=== PATIENT | female | born 1985 | race Caucasian/White ===

== ENCOUNTER 2023-04-25 11:05 | Outpatient (CLI) | payer OTHER ==
[2023-04-25 11:24] LABS: BASOPHILS % (AUTO) 0.4 %; EOSINOPHILS # (AUTO) 0.1 10^3/uL (0.0-0.7); EOSINOPHILS % (AUTO) 1.5 %; HCT - HEMATOCRIT 38.8 % (37.0-47.0); HGB - HEMOGLOBIN 12.9 g/dL (12.0-16.0); LYMPHOCYTES # (AUTO) 2.7 10^3/uL (1.5-3.5); LYMPHOCYTES % (AUTO) 33.2 %; MEAN CORPUSCULAR HEMOGLOBIN 29.3 pg (27.0-31.0); MEAN CORPUSCULAR HGB CONC 33.2 g/dL (32.0-36.0); MONOCYTES # (AUTO) 0.6 10^3/uL (0.0-1.0); NEUTROPHILS # (AUTO) 4.6 10^3/uL (1.5-6.6); NEUTROPHILS % (AUTO) 56.5 %; PLT - PLATELET COUNT 386 10^3/uL (130-450); RED BLOOD COUNT 4.41 10^6/uL (4.20-5.40); RED CELL DISTRIBUTION WIDTH 12.3 % (12.0-15.0)
[2023-04-25 11:40] LABS: ALBUMIN 4.2 g/dL (3.2-5.5); ALBUMIN/GLOBULIN RATIO 1.4 (1.0-2.2); BILIRUBIN,TOTAL 0.4 mg/dL (0.2-1.0); CREATININE 0.7 mg/dL (0.6-1.3); POTASSIUM 3.9 mmol/L (3.5-4.5); TOTAL PROTEIN 7.1 g/dL (6.4-8.9)
[2023-04-25 11:52] LABS: ESTIMATED AVERAGE GLUCOSE 117 mg/dL (70-100); HEMOGLOBIN A1c% 5.7 % (4.27-6.07)
[2023-04-25 11:57] LABS: THYROID STIMULATING HORMONE 2.18 uIU/mL (0.34-5.60)
== END 2023-04-25 11:06 | disposition home or self-care (01) ==
LOC: LAB 11:05
PROVIDERS: ATTEND Nurse Practitioner Obstetrics & Gynecology
DX: Z31.41 Encounter for fertility testing (principal); E66.9 Obesity, unspecified
CPT/HCPCS: 36415; 80053; 83036; 84144; 84439; 84443; 85025

== ENCOUNTER 2023-04-28 11:00 | Outpatient (CLI) | payer OTHER | END 2023-04-28 11:01 | disposition home or self-care (01) | LOC: LAB 11:00 | PROVIDERS: ATTEND Nurse Practitioner Obstetrics & Gynecology | DX: Z31.41 Encounter for fertility testing (principal) | CPT/HCPCS: 36415; 84144 ==

== ENCOUNTER 2023-06-13 08:00 | Outpatient (CLI) | payer SELFPAY | END 2023-06-13 23:59 | disposition home or self-care (01) | LOC: LAB 08:00 | PROVIDERS: ATTEND Nurse Practitioner Obstetrics & Gynecology | DX: O36.80X0 Pregnancy with inconclusive fetal viability, not applicable or unspecified (principal) | CPT/HCPCS: 36415; 84702 ==

== ENCOUNTER 2023-07-04 13:10 | Outpatient (CLI) | payer SELFPAY | END 2023-07-04 13:11 | disposition home or self-care (01) | LOC: LAB 13:10 | PROVIDERS: ATTEND Nurse Practitioner Obstetrics & Gynecology | DX: Z13.79 Encounter for other screening for genetic and chromosomal anomalies (principal) | CPT/HCPCS: 36415; 84144 ==

== ENCOUNTER 2023-08-09 15:13 | Outpatient (CLI) | payer OTHER | END 2023-08-09 15:14 | disposition home or self-care (01) | LOC: LAB.R 15:13 | PROVIDERS: ATTEND Nurse Practitioner Obstetrics & Gynecology | DX: Z13.79 Encounter for other screening for genetic and chromosomal anomalies (principal) | CPT/HCPCS: 84144 ==

== ENCOUNTER 2023-08-12 07:15 | Outpatient (CLI) | payer OTHER | END 2023-08-12 07:16 | disposition home or self-care (01) | LOC: LAB 07:15 | PROVIDERS: ATTEND Nurse Practitioner Obstetrics & Gynecology | DX: Z13.79 Encounter for other screening for genetic and chromosomal anomalies (principal) | CPT/HCPCS: 36415; 84144 ==

== ENCOUNTER 2024-05-29 03:46 | Inpatient (IN) ==
--- OUTSIDE RECORDS SUMMARY | 2024-05-29 03:54 | EXTERNAL MEDICAL SUMMARY RPT | Continuity of Care Document ---
Author Organization [facility] Address [address] [place] [id number] Phone Problems date description facility 2024-03-16 08:55 Supervision of other high risk pregnancies, second trimester [facility] 2024-03-16 08:56 Supervision of other high risk pregnancies, second trimester [facility] 2024-03-17 00:01 Supervision of other high risk pregnancies, second trimester [facility] 2024-03-19 06:37 Supervision of other high risk pregnancies, second trimester [facility] 2024-03-26 13:22 Supervision of other high risk pregnancies, second trimester [facility] 2024-03-26 13:26 Supervision of other high risk pregnancies, second trimester [facility] 2024-04-27 10:41 Supervision of other high risk pregnancies, second trimester [facility] 2024-04-27 11:02 Supervision of other high risk pregnancies, second trimester [facility] 2024-05-01 13:13 Supervision of other high risk pregnancies, second trimester [facility] 2024-05-01 13:21 Supervision of other high risk pregnancies, second trimester [facility] 2024-05-01 14:10 Supervision of other high risk pregnancies, second trimester [facility] 2024-05-01 18:29 Supervision of other high risk pregnancies, second trimester [facility] 2024-05-02 00:01 Supervision of other high risk pregnancies, second trimester [facility] 2024-05-02 10:08 Supervision of other high risk pregnancies, second trimester [facility] 2024-05-03 04:39 Supervision of other high risk pregnancies, second trimester [facility] 2024-05-03 13:00 Supervision of other high risk pregnancies, second trimester [facility] 2024-05-03 13:04 Supervision of other high risk pregnancies, second trimester [facility] 2024-05-03 15:30 Supervision of other high risk pregnancies, second trimester [facility] 2024-05-03 15:36 Supervision of other high risk pregnancies, second trimester [facility] 2024-05-08 13:40 Other specified disorders of mu [facility] 2024-05-08 13:40 Supervision of other high risk pregnancies, second trimester [facility] 2024-05-08 13:40 Unspecified urinary incontinenc e [facility] 2024-05-08 13:40 10 weeks gestation of [facility] 2024-05-08 13:41 Other specified disorders of mu [facility] 2024-05-08 13:41 Supervision of other high risk pregnancies, second trimester [facility] 2024-05-08 13:41 Unspecified urinary incontinenc e [facility] 2024-05-08 13:41 10 weeks gestation of [facility] 2024-05-08 13:47 Supervision of other high risk pregnancies, second trimester [facility] 2024-05-08 13:56 Supervision of other high risk pregnancies, second trimester [facility] 2024-05-08 14:01 Other specified disorders of [facility] 2024-05-08 14:01 Supervision of other high risk pregnancies, second trimester [facility] 2024-05-08 14:01 Unspecified urinary incontinenc e [facility] 2024-05-08 14:01 10 weeks gestation of [facility] 2024-05-10 11:24 Supervision of other high risk pregnancies, second trimester [facility] 2024-05-10 11:36 Other specified disorders of mu [facility] 2024-05-10 11:36 Supervision of other high risk pregnancies, second trimester [facility] 2024-05-10 11:36 Unspecified urinary incontinenc e [facility] 2024-05-10 11:36 10 weeks gestation of [facility] 2024-05-10 11:37 Supervision of other high risk pregnancies, second trimester [facility] 2024-05-22 16:42 Supervision of other high risk pregnancies, second trimester [facility] 2024-05-22 18:31 Supervision of other high risk pregnancies, second trimester [facility] 2024-05-23 00:01 Supervision of other high risk pregnancies, second trimester [facility] Results/Labs test date facility value unit notes Result panel 1 SPECIFIC GRAVITY,URINE 2024-05-29 02[facility].030 (missing) (missing) KETONES,URINE (UA) 2024-05-29 02[facility] >=80 mg/dl (missing) WBC,URINE 2024-05-29 02:20 [facility] 0-3 /hpf (missing) RBC,URINE 2024-05-29 02:20 [facility] 0-5 /hpf (missing) PROTEIN/CREATININE RATIO,URINE 2024-05-29 02:20 [facility] 0.2 (missing) (missing) UROBILINOGEN,URINE 2024-05-29 02:20 [facility] 1 (NORMAL) e.u./dl (missing) CREATININE,URINE 2024-05-29 02: [facility] 110.2 mg/dl As of August 2022 testing method has changed, this may include reference ranges. TOTAL PROTEIN,URINE TIMED 2024-05-29 02: [facility] 17 mg/dl As of August 2022 testing method has changed, this may include reference ranges. PH,URINE 2024-05-29 02:20 [facility] 6.0 ph (missing) CLARITY,URINE 2024-05-29 02:20 [facility] CLEAR (missing) (missing) SQUAMOUS EPITHELIAL CELL,UR 2024-05-29 02:20 [facility] FEW Squamous (missing) (missing) LEUKOCYTE ESTERASE, URINE 2024-05-29 02:20 [facility] NEGATIVE (missing) (missing) NITRITE,URINE 2024-05-29 02:20 [facility] NEGATIVE (missing) (missing) OCCULT BLOOD,URINE 2024-05-29 02:20 [facility] NEGATIVE (missing) (missing) BILIRUBIN,URINE 2024-05-29 02:20 [facility] NEGATIVE (missing) Bilirubin can be influenced by color interference. Please correlate positive results with clinical presentation GLUCOSE, URINE (UA) 2024-05-29 02:20 [facility] NEGATIVE mg/dl (missing) PROTEIN,URINE 2024-05-29 02:20 [facility] NEGATIVE mg/dl (missing) UR CULTURE IF IND 2024-05-29 02:20 [facility] NOT INDICATED (missing) (missing) BACTERIA,URINE 2024-05-29 02[facility] (missing) COLOR,URINE 2024-05-29 02[facility] YELLOW (missing) URINE CLEAN CATCH Result panel 2 NUCLEATED RED BLOOD CELLS AUTO 2024-05-29 02:29 [facility] 0.0 /100wbc (missing) BASOPHILS # (AUTO) 2024-05-29 02:29 [facility] 0.0 10 3/ul (missing) NRBC ABSOLUTE COUNT (AUTO) 2024-05-29 02[facility] 0.00 x10 3/ul (missing) EOSINOPHILS # (AUTO) 2024-05-29 [facility] 0.1 10 3/ul (missing) BILIRUBIN,TOTAL 2024-05-29 02: [facility] 0.4 mg /dl As of August 2022 testing method has changed, this may include reference ranges. CREATININE 2024-05-29 02: [facility] 0.5 mg/dl As of August 2022 testing method has changed, this may include reference ranges. MONOCYTES # (AUTO) 2024-05-29 02:29 [facility] 0.8 10 3/ul (missing) ALBUMIN/GLOBULIN RATIO 2024-05-29 02:29 [facility] 1.1 (missing) (missing) LYMPHOCYTES # (AUTO) 2024-05-29 02:29 [facility] 1.8 10 3/ul (missing) AST ASPARTATE AMINOTRANSFERASE 2024-05-29 02: [facility] 10 iu/l As of August 2022 testing method has changed, this may include reference ranges. ANION GAP 2024-05-29 02:29 [facility] 10.0 (missing ) (missing) CHLORIDE 2024-05-29 02:29 [facility] 105 mmol/l As of August 2022 testing method has changed, this may include reference ranges. HGB - HEMOGLOBIN 2024-05-29 02: [facility] 11.7 g /dl (missing) WHITE BLOOD COUNT 2024-05-29 02: [facility] 12.5 x10 3/ul (missing) RED CELL DISTRIBUTION WIDTH 2024-05-29 02: [facility] 12.8 % (missing) GLUCOSE 2024-05-29 02: [facility] 126 mg/dl As of August 2022 testing method has changed, this may include reference ranges. SODIUM 2024-05-29 02: [facility] 137 mmol/l As of August 2022 testing method has changed, this may include reference ranges. GFR - MDRD 2024-05-29 02:29 [facility] 140 (in g) Social History date description facility
[2024-05-29] MEDS: METOCLOPRAMIDE 10 MG/2 ML VIAL IVP STA (04:14)
[2024-05-29] MEDS: MORPHINE 10 MG/ML VIAL IVP PRN ×2 (04:14→05:10)
[2024-05-29] MEDS: ACETAMINOPHEN 1,000 MG/100 ML 1,000 MG/100 ML BAG IV ONE (04:45)
[2024-05-29 05:13] LABS: BASOPHILS % (AUTO) 0.2 %; EOSINOPHILS % (AUTO) 0.2 %; HCT - HEMATOCRIT 35.3 % (37.0-47.0); HGB - HEMOGLOBIN 11.6 g/dL (12.0-16.0); LYMPHOCYTES # (AUTO) 1.5 10^3/uL (1.5-3.5); LYMPHOCYTES % (AUTO) 9.9 %; MEAN CORPUSCULAR HEMOGLOBIN 29.1 pg (27.0-31.0); MEAN CORPUSCULAR HGB CONC 32.9 g/dL (32.0-36.0); MEAN CORPUSCULAR VOLUME 88.5 fL (81.0-99.0); MEAN PLATELET VOLUME 10.2 fL (7.9-10.8); MONOCYTES # (AUTO) 0.8 10^3/uL (0.0-1.0); MONOCYTES % (AUTO) 5.3 %; NEUTROPHILS # (AUTO) 12.7 10^3/uL (1.5-6.6); NEUTROPHILS % (AUTO) 83.4 %; PLT - PLATELET COUNT 364 10^3/uL (130-450); RED BLOOD COUNT 3.99 10^6/uL (4.20-5.40); RED CELL DISTRIBUTION WIDTH 12.7 % (12.0-15.0); WHITE BLOOD COUNT 15.2 x10^3/uL (4.8-10.8)
--- NOTE | 2024-05-29 05:16 | ED Physician Documentation ---
History of Present Illness Stated complaint Stated Complaint: RUQ ABD PX Chief complaint Chief Complaint: Abd Pain Additonal information Additional information: 38-year-old female with past medical significant for 27 weeks , central hypertension presents to the emergency department with chief complaint of abdominal pain. She presents to the emergency department from labor and delivery. Acute onset epigastric and right upper quadrant abdominal pain began this evening. Did report that it happened after fatty meal. Was seen at labor delivery and cleared from perspective/elevated blood pressure. Currently reports severe left upper quadrant and epigastric pain. Denies previous abdominal surgeries, fever, chills, chest pain, shortness of breath. [place] Coma Scale Assess Eye opening: Spontaneous Verbal response: Oriented Motor response: Obeys Commands Total score: 15 Review of Systems Status of ROS: 10 or more systems reviewed and unremarkable except as noted in history and below Gastrointestinal Reports: Abdominal pain, Nausea and Vomiting Meds/Allgy Home Medications Ambulatory Orders Medication Instructions Recorded Confirmed vits no.28-ferrous 1 tab PO QDAY 01/10/24 05/22/24 fumarate 27 mg iron-folic acid 1 mg tablet metoclopramide HCl 5 mg tablet 5 mg PO Q6H PRN nausea and 02/09/24 05/22/24 vomiting #90 tabs aspirin 81 mg tablet,delayed 81 mg PO QDAY 03/16/24 05/22/24 release (Adult Aspirin Regimen) omeprazole 20 mg capsule,delayed 20 mg PO QDAY #90 caps 04/24/24 05/22/24 release sodium citrate-citric acid 500 15 ml PO .bid PRN #473 mL 04/24/24 05/22/24 mg-334 mg/5 mL oral solution sucralfate 1 gram tablet (Carafate) 1 g PO BID #90 tabs 04/24/24 05/22/24 nifedipine 30 mg tablet,extended 30 mg PO QDAY #90 tabs 05/01/24 05/22/24 release 24 hr (Procardia XL) Allergies Allergies Allergy/AdvReac Type Severity Reaction Status Date / Time No Known Drug Allergies Allergy Verified 05/29/24 03:57 PFSH Active Problems All Active Problems (Updated 03/16/24 @ 08:49 by Farhana Jaquez MA) Supervision of other high risk pregnancies, second trimester (Acute) Advanced maternal age (AMA) in (Acute) (Acute) Supervision of other high risk pregnancies, first trimester (Acute) Elevated blood pressure affecting in first trimester, antepartum (Acute) test positive (Acute) Anovulation (Acute) Surgical History Surgical History (Updated 01/10/24 @ 08:57 by Farhana Jaquez MA) Hx of LASIK H/O eye surgery right H/O cosmetic surgery H/O left knee surgery ACL repair Family History Family History (Updated 01/10/24 @ 09:10 by Farhana Jaquez MA) Father Alcohol abuse Mother Alcohol abuse Social History Social History (Updated 01/10/24 @ 08:57 by Farhana Jaquez MA) Smoking Status: Never smoker Do you vape?: No Living arrangement: At home Marital Status: Relationship: Do you feel safe in your home environment?: Yes Suffered physical, verbal, emotional, or financial abuse?: No ETOH Use: None Are you sexually active?: Yes 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 HENMT normocephalic, head/scalp atraumatic, hearing grossly normal bilaterally and external ears normal Eyes PERRL Neck/C-Spine visual inspection normal Lymph no lymphadenopathy noted Chest inspection of chest normal Respiratory breath sounds equal bilaterally, normal respiratory effort, clear to auscultation bilaterally, no wheezes and no use of accessory muscles Cardiovascular normal heart rate noted, regular rhythm noted, no gallop, no rub, no murmur, no JVD and no clicks Gastrointestinal abdomen normal to inspection, abdomen soft to palpation, nontender to palpation and nontender to percussion Genitourinary no CVA tenderness Back/Pelvis spine normal to inspection Extremities normal to inspection Neurology heating operators engineer II-XII intact, no movement abnormality noted, no focal motor deficit noted and no sensory deficits noted Psychiatry mental status grossly normal Skin skin color normal Results Vitals Vitals: Vital Signs - 24 hr 05/29/24 02:36 05/29/24 03:19 05/29/24 03:50 Temperature 36.6 C Temperature Source Oral Pulse Rate 92 Respiratory Rate 16 Blood Pressure 146/90 H O2 Saturation 98 O2 Source Room air Pain Intensity 7 8 Pain Intensity [Abdomen upper quadrant] 8 05/29/24 04:14 05/29/24 05:00 05/29/24 05:10 Temperature Temperature Source Pulse Rate Respiratory Rate Blood Pressure O2 Saturation O2 Source Pain Intensity 9 3 5 Pain Intensity [Abdomen upper quadrant] 05/29/24 05:45 05/29/24 06:00 05/29/24 06:36 Temperature Temperature Source Pulse Rate 83 Respiratory Rate 20 Blood Pressure 130/75 O2 Saturation 99 O2 Source Pain Intensity 1 5 Pain Intensity [Abdomen upper quadrant] Oxygen O2 Source Room air Labs Labs: Laboratory Tests 05/29/24 05:07 WBC 15.2 H RBC 3.99 L Hgb 11.6 L Hct 35.3 L MCV 88.5 MCH 29.1 MCHC 32.9 RDW 12.7 Plt Count 364 MPV 10.2 Neut # (Auto) 12.7 H Lymph # (Auto) 1.5 Harmon # (Auto) 0.8 Eos # (Auto) 0.0 Baso # (Auto) 0.0 Absolute Nucleated RBC 0.00 Nucleated RBC % 0.0 Sodium 135 Potassium 3.7 Chloride 104 Carbon Dioxide 21 Anion Gap 10.0 BUN 6 Creatinine 0.5 L Estimated GFR (MDRD) 140 Glucose 128 H Calcium 8.6 Total Bilirubin 0.4 AST 10 ALT 9 L Alkaline Phosphatase 92 Total Protein 6.9 Albumin 3.7 Globulin 3.2 Albumin/Globulin Ratio 1.2 Lipase 12 PD Medical Decision Making ED course Complexity details: reviewed results, re-evaluated patient, considered differential and d/w patient ED course: 38-year-old female who is approximately 27 weeks presents from L&D for evaluation for abdominal pain. She does have a past medical history significant for essential hypertension. Was evaluated in L&D for preeclampsia, cleared from perspective and referred to the emergency department for further evaluation and treatment. Significantly distressed on arrival to the emergency department. Given dose of Reglan, IV morphine with some relief. Additionally given dose Willian Mab. No appreciable epigastric or right upper quadrant tenderness abdominal exam otherwise benign. Repeat lab work demonstrates an uptrending white blood cell count but normal LFTs, alkaline phosphatase, lipase. At this time I have asked for both right upper quadrant as well as right renal ultrasonography to evaluate for biliary pathology and or nephrolithiasis which could be contributing to the patient's symptoms. Will be signing out to the oncoming physician, please see their documentation for further detail. Discharge Plan Discharge Prescriptions: No Action metoclopramide HCl 5 mg tablet 5 mg PO Q6H PRN (Reason: nausea and vomiting) Qty: 90 2RF Rx Instructions: May increase to 2 tablets every 6 hours if one tablet every 6 hours is ineffective. sodium citrate-citric acid 500-334 mg/5 mL solution 15 ml PO .bid PRNQty: 473 0RF sucralfate [Carafate] 1 gram tablet 1 g PO BID Qty: 90 4RF omeprazole 20 mg capsule,delayed release(DR/EC) 20 mg PO QDAY Qty: 90 4RF vit 28-iron fum-folic 27 mg iron- 1 mg tablet 1 tab PO QDAY aspirin [Adult Aspirin Regimen] 81 mg tablet,delayed release (DR/EC) 81 mg PO QDAY nifedipine [Procardia XL] 30 mg tablet extended release 24hr 30 mg PO QDAY Qty: 90 4RF Print Language: Welsh Stand Alone Forms: PCP List
[2024-05-29 05:36] LABS: ALBUMIN 3.7 g/dL (3.2-5.5); ALBUMIN/GLOBULIN RATIO 1.2 (1.0-2.2); BILIRUBIN,TOTAL 0.4 mg/dL (0.2-1.0); CALCIUM 8.6 mg/dL (8.5-10.3); CREATININE 0.5 mg/dL (0.6-1.3); POTASSIUM 3.7 mmol/L (3.5-4.5); TOTAL PROTEIN 6.9 g/dL (6.4-8.9)
[2024-05-29] MEDS: ONDANSETRON 4 MG/2 ML VIAL IVP STA (06:42)
[2024-05-29] MEDS ORDERED: MORPHINE 10 MG/ML VIAL ONE (07:52)
[2024-05-29 08:14] LABS: BILIRUBIN,URINE NEGATIVE (NEGATIVE); GLUCOSE, URINE (UA) NEGATIVE (NEGATIVE); KETONES,URINE (UA) >=80 mg/dL (NEGATIVE); LEUKOCYTE ESTERASE, URINE NEGATIVE (NEGATIVE); NITRITE,URINE NEGATIVE (NEGATIVE); OCCULT BLOOD,URINE NEGATIVE (NEGATIVE); PROTEIN,URINE NEGATIVE (NEGATIVE); UROBILINOGEN,URINE 1 (NORMAL) E.U./dL (NORMAL)
[2024-05-29 08:15] LABS: CLARITY,URINE CLEAR (CLEAR)
[2024-05-29] MEDS: FAMOTIDINE 20 MG TABLET PO STA (08:51)
[2024-05-29] MEDS: LIDOCAINE VISCOUS 2% 15 ML UDC MM STA (08:52)
[2024-05-29] MEDS: MAG HYDROX/AL HYDROX/SIMETH 30 ML UDC PO STA (08:52)
[2024-05-29] MEDS ORDERED: HYDROmorphone 1 MG/ML SYRINGE ONE (09:30)
[2024-05-29] MEDS: HYDROmorphone 1 MG/ML SYRINGE IVP STA (09:32)
[2024-05-29] MEDS: LACTATED RINGERS 1,000 ML IV STA (09:37)
--- NOTE | 2024-05-29 09:50 | CONSULTATION NOTE ---
PFSH Active Problems All Active Problems (Updated 05/29/24 @ 10:50 by Omkar Edgar MD) Intractable abdominal pain (Acute) (Acute) Right upper quadrant abdominal pain (Acute) Upper abdominal pain (Acute) Supervision of other high risk pregnancies, second trimester (Acute) Advanced maternal age (AMA) in (Acute) (Acute) Supervision of other high risk pregnancies, first trimester (Acute) Elevated blood pressure affecting in first trimester, antepartum (Acute) test positive (Acute) Anovulation (Acute) Surgical History Surgical History Hx of LASIK H/O eye surgery right H/O cosmetic surgery H/O left knee surgery ACL repair Family History Family History (Updated 01/10/24 @ 09:10 by Farhana Jaquez MA) Father Alcohol abuse Mother Alcohol abuse Social History Social History (Updated 01/10/24 @ 08:57 by Farhana Jaquez MA) Smoking Status: Never smoker Do you vape?: No Living arrangement: At home Marital Status: Relationship: Do you feel safe in your home environment?: Yes Suffered physical, verbal, emotional, or financial abuse?: No ETOH Use: None Are you sexually active?: Yes 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 Meds/Allgy Home Medications Ambulatory Orders Medication Instructions Recorded Confirmed vits no.28-ferrous 1 tab PO QDAY 01/10/24 05/29/24 fumarate 27 mg iron-folic acid 1 mg tablet metoclopramide HCl 5 mg tablet 5 mg PO Q6H PRN nausea and 02/09/24 05/29/24 vomiting #90 tabs aspirin 81 mg tablet,delayed 81 mg PO QDAY 03/16/24 05/29/24 release (Adult Aspirin Regimen) omeprazole 20 mg capsule,delayed 20 mg PO QDAY #90 caps 04/24/24 05/29/24 release sucralfate 1 gram tablet (Carafate) 1 g PO BID #90 tabs 04/24/24 05/29/24 nifedipine 30 mg tablet,extended 30 mg PO QDAY #90 tabs 05/01/24 05/29/24 release 24 hr (Procardia XL) sodium citrate-citric acid 500 15 ml PO .bid 05/29/24 05/29/24 mg-334 mg/5 mL oral solution Allergies Allergies Allergy/AdvReac Type Severity Reaction Status Date / Time No Known Drug Allergies Allergy Verified 05/29/24 03:57 Results Lab Results 05/29/24 05:07 05/29/24 05:07 Other Lab Results: Lab Results x24hrs 05/29/24 05/29/24 Range/Units 08:10 05:07 WBC 15.2 H (4.8-10.8) x10^3/uL RBC 3.99 L (4.20-5.40) 10^6/uL Hgb 11.6 L (12.0-16.0) g/dL Hct 35.3 L (37.0-47.0) % MCV 88.5 (81.0-99.0) fL MCH 29.1 (27.0-31.0) pg MCHC 32.9 (32.0-36.0) g/dL RDW 12.7 (12.0-15.0) % Plt Count 364 (130-450) 10^3/uL MPV 10.2 (7.9-10.8) fL Neut # (Auto) 12.7 H (1.5-6.6) 10^3/uL Lymph # (Auto) 1.5 (1.5-3.5) 10^3/uL [place] # (Auto) 0.8 (0.0-1.0) 10^3/uL Eos # (Auto) 0.0 (0.0-0.7) 10^3/uL Baso # (Auto) 0.0 (0.0-0.1) 10^3/uL Absolute Nucleated RBC 0.00 x10^3/uL Nucleated RBC % 0.0 /100WBC Sodium 135 (135-145) mmol/L Potassium 3.7 (3.5-4.5) mmol/L Chloride 104 (101-111) mmol/L Carbon Dioxide 21 (21-32) mmol/L Anion Gap 10.0 (6-13) BUN 6 (6-20) mg/dL Creatinine 0.5 L (0.6-1.3) mg/dL Estimated GFR (MDRD) 140 (>89) Glucose 128 H (74-104) mg/dL Calcium 8.6 (8.5-10.3) mg/dL Total Bilirubin 0.4 (0.2-1.0) mg/dL AST 10 (10-42) IU/L ALT 9 L (10-60) IU/L Alkaline Phosphatase 92 (42-121) IU/L Total Protein 6.9 (6.4-8.9) g/dL Albumin 3.7 (3.2-5.5) g/dL Globulin 3.2 (2.1-4.2) g/dL Albumin/Globulin Ratio 1.2 (1.0-2.2) Lipase 12 (11-82) U/L Urine Color YELLOW Urine Clarity CLEAR (CLEAR) Urine pH 7.0 (5.0-7.5) PH Ur Specific [place] 1.025 (1.002-1.030) Urine Protein NEGATIVE (NEGATIVE) mg/dL Urine Glucose (UA) NEGATIVE (NEGATIVE) mg/dL Urine Ketones >=80 H (NEGATIVE) mg/dL Urine Occult Blood NEGATIVE (NEGATIVE) Urine Nitrite NEGATIVE (NEGATIVE) Urine Bilirubin NEGATIVE (NEGATIVE) Urine Urobilinogen 1 (NORMAL) (NORMAL) E.U./dL Ur Leukocyte Esterase NEGATIVE (NEGATIVE) Ur Microscopic Review NOT INDICATED Urine Culture Comments NOT INDICATED Conclusion and Plan Consultation Note Consultation Note: General Surgery Consultation Note Assessment: 1) RUQ and epigastric colic, etiology unclear. There is no US evidence of gallbladder distension or dilation of the cystic duct or the CBD. The gallbladder wall thickness of 3.4 mm and the presence or pericholecystic fluid combined with a WBC of 15K is suggestive of acute cholecystitis. 2) High risk 3) PTSD/Anxiety 4) Class III Obesity Recommendation: 1) Serum lipase to R/O acute pancreatitis 2) IV Ceftriaxone/Flagyl, IV analgesics as indicated 3) Surgical intervention for acute cholecystitis should be within 48-72 hours of admission. Given her high risk , efforts should be made to arrange for transfer to a Tertiary Care Facility for the cholecystectomy because if premature emergency delivery becomes necessary, our facility does not have the support to manage the . <><><><><><><><><><> Reason for Consultation I am requested by Svetlana Ellington to provide consultation for: Cheryl Donnelly regarding RUQ pain Chief Complaint Abdominal pain HPI Cheryl is a 38 year old female who is 27 weeks and presents with the onset of RUQ and epigastric abdominal pain. She first developed indigestion after yesterday's evening meal. This was followed by multiple bouts of nausea and emesis such that she eliminated her entire dinner. This was followed by sharp, intermittent epigastric and RUQ pain severe enough that she was brought to the ED at 0200. The pain has been poorly controlled with IV morphine. She denies having similar discomfort either prior to her or during her although she has struggled with dyspepsia and GERD during her term and takes antacids and PPI medication to control her symptoms. She had several pain attacks during the interview and they appear to be more like colic than peritoneal irritation. Past Medical History Migraines Past Surgical History Lasik, ACL repair Family History - See above Social History - See above Current Medications See "Medication" section Allergies NKDA ROS Pertinent positives Nausea, emesis, indigestion, upper abdominal pain All other reviewed systems negative Physical Examination Vital Signs: BP 134/77; P 77; RR 16 BMI: 43 GENERAL APPEARANCE: Normal development, Normal grooming PSYCHIATRIC: AAO; Lying in LLD position for comfort; Periodic bouts of abdominal discomfort evident EYES: Pupils equal, round and reactive to light, sclera anicteric EARS, NOSE, MOUTH, THROAT: Hearing normal, Oral mucous membranes moist and without lesions; NECK: No crepitus, lymphadenopathy, or thyromegaly LUNGS: Clear to auscultation without wheezing; No use of accessory muscles to breathe CARDIOVASCULAR: Heart-NSR without murmurs; Palpable carotid arteries - no bruits; ABD: Palpable, non-tender uterus extends to xiphoid; No elicitation of tenderness in the epigastric region or the RUQ with palpation, No peritoneal irritation in any quadrant LYMPHATIC: Neck, Axillae, Groin no palpable adenopathy SKIN: Anicteric; No rashes, lesions, Ulcerations Labs WBC 15.2; Hgb 11.6; Hct 35.3; Plt 364 Na 135; K 3.7; BUN 6; Cr 0.5; T Puneet 0.4; AST 10; ALT 9; Alk Phos 92 Antibiotics: None Imaging US RUQ - No evidence of cholelithiasis (slight biliary sludge present), no Islas's sign; Gallbladder wall is 3.4 mm and the gallbladder is without distension; Minimal pericholecystic fluid is present; No intra- or extra- hepatic biliary dilation; Pancreas appears normal All images were personally reviewed by me for this encounter. Erik Phillips MD, [facility] General Surgery Service [phone] Exam Exam Vital Signs: Vital Signs x48h Temp Pulse Resp BP Pulse Ox 05/29/24 09:00 77 16 134/77 H 98 05/29/24 07:00 89 18 136/75 H 95 05/29/24 05:45 83 20 130/75 99 05/29/24 03:50 36.6 C 92 16 146/90 H 98
--- NOTE | 2024-05-29 09:54 | Ultrasound Report ---
PROCEDURE: US Abdomen Limited INDICATIONS: RUQ pain. TECHNIQUE: Real-time focused scanning was performed of the abdomen, with image documentation. COMPARISONS: None. FINDINGS: Liver: Liver is normal in size and homogeneous in echotexture. Gallbladder: No gallstones. Biliary sludge noted. Gallbladder wall is thickened to 3.4 mm. Pericholec ystic fluid noted. No sonographic Islas's sign reported.. Biliary ducts: Intrahepatic bile ducts are non-dilated. Extrahepatic bile duct caliber measures 5.1 mm. Normal is 6-7 mm or less in diameter, or 10 mm or less post-cholecystectomy. Pancreas: Visualized portions of the pancreas are sonographically normal. Right kidney: Normal in size and echotexture. Right kidney measures 13.8 cm long. No hydronephrosis or nephrolithiasis. No solid masses. No complex renal cystic lesions which require follow-up. IVC: Intrahepatic inferior vena cava is patent. Miscellaneous: No free abdominal fluid. IMPRESSION: Gallbladder wall thickening with trace pericholecystic fluid may represent acute cholecystitis. Reviewed by: Roro Conti MD, PhD on 05/29/2024 9:52 AM PDT Approved by: Roro Conti MD, PhD on 05/29/2024 9:52 AM PDT Station ID: [id number]
--- NOTE | 2024-05-29 10:27 | CONSULTATION NOTE ---
PFSH Active Problems All Active Problems (Updated 03/16/24 @ 08:49 by Farhana Jaquez MA) Supervision of other high risk pregnancies, second trimester (Acute) Advanced maternal age (AMA) in (Acute) (Acute) Supervision of other high risk pregnancies, first trimester (Acute) Elevated blood pressure affecting in first trimester, antepartum (Acute) test positive (Acute) Anovulation (Acute) Surgical History Surgical History (Updated 01/10/24 @ 08:57 by Farhana Jaquez MA) Hx of LASIK H/O eye surgery right H/O cosmetic surgery H/O left knee surgery ACL repair Family History Family History (Updated 01/10/24 @ 09:10 by Farhana Jaquez MA) Father Alcohol abuse Mother Alcohol abuse Social History Social History (Updated 01/10/24 @ 08:57 by Farhana Jaquez MA) Smoking Status: Never smoker Do you vape?: No Living arrangement: At home Marital Status: Relationship: Do you feel safe in your home environment?: Yes Suffered physical, verbal, emotional, or financial abuse?: No ETOH Use: None Are you sexually active?: Yes 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 Meds/Allgy Home Medications Ambulatory Orders Medication Instructions Recorded Confirmed vits no.28-ferrous 1 tab PO QDAY 01/10/24 05/29/24 fumarate 27 mg iron-folic acid 1 mg tablet metoclopramide HCl 5 mg tablet 5 mg PO Q6H PRN nausea and 02/09/24 05/29/24 vomiting #90 tabs aspirin 81 mg tablet,delayed 81 mg PO QDAY 03/16/24 05/29/24 release (Adult Aspirin Regimen) omeprazole 20 mg capsule,delayed 20 mg PO QDAY #90 caps 04/24/24 05/29/24 release sucralfate 1 gram tablet (Carafate) 1 g PO BID #90 tabs 04/24/24 05/29/24 nifedipine 30 mg tablet,extended 30 mg PO QDAY #90 tabs 05/01/24 05/29/24 release 24 hr (Procardia XL) sodium citrate-citric acid 500 15 ml PO .bid 05/29/24 05/29/24 mg-334 mg/5 mL oral solution Allergies Allergies Allergy/AdvReac Type Severity Reaction Status Date / Time No Known Drug Allergies Allergy Verified 05/29/24 03:57 Results Lab Results 05/29/24 05:07 05/29/24 05:07 Other Lab Results: Lab Results x24hrs 05/29/24 05/29/24 Range/Units 08:10 05:07 WBC 15.2 H (4.8-10.8) x10^3/uL RBC 3.99 L (4.20-5.40) 10^6/uL Hgb 11.6 L (12.0-16.0) g/dL Hct 35.3 L (37.0-47.0) % MCV 88.5 (81.0-99.0) fL MCH 29.1 (27.0-31.0) pg MCHC 32.9 (32.0-36.0) g/dL RDW 12.7 (12.0-15.0) % Plt Count 364 (130-450) 10^3/uL MPV 10.2 (7.9-10.8) fL Neut # (Auto) 12.7 H (1.5-6.6) 10^3/uL Lymph # (Auto) 1.5 (1.5-3.5) 10^3/uL [place] # (Auto) 0.8 (0.0-1.0) 10^3/uL Eos # (Auto) 0.0 (0.0-0.7) 10^3/uL Baso # (Auto) 0.0 (0.0-0.1) 10^3/uL Absolute Nucleated RBC 0.00 x10^3/uL Nucleated RBC % 0.0 /100WBC Sodium 135 (135-145) mmol/L Potassium 3.7 (3.5-4.5) mmol/L Chloride 104 (101-111) mmol/L Carbon Dioxide 21 (21-32) mmol/L Anion Gap 10.0 (6-13) BUN 6 (6-20) mg/dL Creatinine 0.5 L (0.6-1.3) mg/dL Estimated GFR (MDRD) 140 (>89) Glucose 128 H (74-104) mg/dL Calcium 8.6 (8.5-10.3) mg/dL Total Bilirubin 0.4 (0.2-1.0) mg/dL AST 10 (10-42) IU/L ALT 9 L (10-60) IU/L Alkaline Phosphatase 92 (42-121) IU/L Total Protein 6.9 (6.4-8.9) g/dL Albumin 3.7 (3.2-5.5) g/dL Globulin 3.2 (2.1-4.2) g/dL Albumin/Globulin Ratio 1.2 (1.0-2.2) Lipase 12 (11-82) U/L Urine Color YELLOW Urine Clarity CLEAR (CLEAR) Urine pH 7.0 (5.0-7.5) PH Ur Specific [place] 1.025 (1.002-1.030) Urine Protein NEGATIVE (NEGATIVE) mg/dL Urine Glucose (UA) NEGATIVE (NEGATIVE) mg/dL Urine Ketones >=80 H (NEGATIVE) mg/dL Urine Occult Blood NEGATIVE (NEGATIVE) Urine Nitrite NEGATIVE (NEGATIVE) Urine Bilirubin NEGATIVE (NEGATIVE) Urine Urobilinogen 1 (NORMAL) (NORMAL) E.U./dL Ur Leukocyte Esterase NEGATIVE (NEGATIVE) Ur Microscopic Review NOT INDICATED Urine Culture Comments NOT INDICATED Exam Exam Vital Signs: Vital Signs x48h Temp Pulse Resp BP Pulse Ox 05/29/24 09:00 77 16 134/77 H 98 05/29/24 07:00 89 18 136/75 H 95 05/29/24 05:45 83 20 130/75 99 05/29/24 03:50 36.6 C 92 16 146/90 H 98
[2024-05-29] MEDS ORDERED: ONDANSETRON 4 MG/2 ML VIAL IVP PRN (10:33)
[2024-05-29] MEDS ORDERED: SODIUM CHLORIDE FLUSH 0.9% 10 ML SYRINGE IVP PRN (10:33)
[2024-05-29] MEDS ORDERED: ZOLPIDEM 5 MG TABLET PO PRN (10:33)
[2024-05-29] MEDS ORDERED: PROCHLORPERAZINE 10 MG/2 ML VIAL IVP PRN (10:33)
--- NOTE | 2024-05-29 10:53 | ED Physician Documentation ---
ED Addendum Addendum Addendum: The patient was seen after change of shift. She was still having considerable pain and given Dilaudid 1 mg IV. Also consideration of whether there could be a gastric or duodenal cause for the pain rather than gallbladder. She was getting a gallbladder and kidney ultrasound in the kidney we did not have any enlargement. The ultrasound of the gallbladder showed there to be sludge with some enlargement. The wall was minimally thickened but mostly only 3 mm. There was some pericholecystic fluid however. She was also very tender in that area. No signs of hydronephrosis so unlikely kidney stone. She is tender in the right upper quadrant. Consideration for early cholecystitis. I also did give some p.o. Mylanta and lidocaine when it did not look imminently surgical on ultrasound. I contacted Dr. Ellington who is on for HANDLE [employer]ISH[facility] and also Dr. Phillips who is on for general surgery. Dr. Phillips came to the ER and evaluated the patient. He does not think she is surgical need at this time. If she were to need surgery she would transfer out to another facility given her at 27 weeks so there would be a center available. However at this point it might need just pain medication and fluids and time so Dr. Ellington will place the patient in the hospital. Discharge Plan Discharge Patient Disposition: ED Place in Observation Condition: Stable Clinical Impression: Right upper quadrant abdominal pain, Intractable abdominal pain Qualifiers: Weeks of gestation: 29 weeks Qualified Code(s): Z3A.29 - 29 weeks gestation of Prescriptions: No Action metoclopramide HCl 5 mg tablet 5 mg PO Q6H PRN (Reason: nausea and vomiting) Qty: 90 2RF Rx Instructions: May increase to 2 tablets every 6 hours if one tablet every 6 hours is ineffective. sucralfate [Carafate] 1 gram tablet 1 g PO BID Qty: 90 4RF omeprazole 20 mg capsule,delayed release(DR/EC) 20 mg PO QDAY Qty: 90 4RF sodium citrate-citric acid 500-334 mg/5 mL solution 15 ml PO .bid vit 28-iron fum-folic 27 mg iron- 1 mg tablet 1 tab PO QDAY aspirin [Adult Aspirin Regimen] 81 mg tablet,delayed release (DR/EC) 81 mg PO QDAY nifedipine [Procardia XL] 30 mg tablet extended release 24hr 30 mg PO QDAY Qty: 90 4RF Print Language: New Zealander Stand Alone Forms: PCP List
--- OUTSIDE RECORDS SUMMARY | 2024-05-29 11:07 | EXTERNAL MEDICAL SUMMARY RPT | Continuity of Care Document ---
Author Organization [facility] Address [address] [place] [id number] Phone Problems date description facility 2024-03-16 08:55 [...] of other high risk pregnancies, second trimester [facility] 2024-05-03 15:36 Supervision of other high risk pregnancies, second trimester [facility] 2024-05-08 13:40 Other specified disorders of mu [facility] 2024-05-08 13:40 Supervision of other high risk pregnancies, second trimester [facility] 2024-05-08 13:40 Unspecified urinary incontinenc e [facility] 2024-05-08 13:40 10 weeks gestation of [facility] 2024-05-08 13:41 Other specified disorders of mu [facility] 2024-05-08 13:41 Supervision of other high risk pregnancies, second trimester [facility] 2024-05-08 13:41 Unspecified urinary incontinenc e [facility] 2024-05-08 13:41 10 weeks gestation of [facility] 2024-05-08 13:47 Supervision of other high risk pregnancies, second trimester [facility] 2024-05-08 13:56 Supervision of other high risk pregnancies, second trimester [facility] 2024-05-08 14:01 Other specified disorders of [facility] 2024-05-08 14:01 Supervision of other high risk pregnancies, second trimester [facility] 2024-05-08 14:01 Unspecified urinary incontinenc e [facility] 2024-05-08 14:01 10 weeks gestation of [facility] 2024-05-10 11:24 Supervision of other high risk pregnancies, second trimester [facility] 2024-05-10 11:36 Other specified disorders of mu [facility] 2024-05-10 11:36 Supervision of other high risk pregnancies, second trimester [facility] 2024-05-10 11:36 Unspecified urinary incontinenc e [facility] 2024-05-10 11:36 10 weeks gestation of [facility] 2024-05-10 11:37 Supervision of other high risk pregnancies, second trimester [facility] 2024-05-22 16:42 Supervision of other high risk pregnancies, second trimester [facility] 2024-05-22 18:31 Supervision of other high risk pregnancies, second trimester [facility] 2024-05-23 00:01 Supervision of other high risk pregnancies, second [facility] 2024-05-29 10:45 Upper abdominal pain, unspecifi ed [facility] 2024-05-29 10:50 Upper abdominal pain, unspecifi ed [facility] Results/Labs test date facility value unit notes Result panel 1 SPECIFIC GRAVITY,URINE 2024-05-29 02:20 [facility] >=1.030 (missing) (missing) KETONES,URINE (UA) 2024-05-29 02:20 [facility] >=80 mg/dl (missing) WBC,URINE 2024-05-29 02:20 [facility] 0-3 /hpf (missing) RBC,URINE 2024-05-29 02:20 [facility] 0-5 /hpf (missing) PROTEIN/CREATININE RATIO,URINE 2024-05-29 02:20 [facility] 0.2 (missing) (missing) UROBILINOGEN,URINE 2024-05-29 02:20 [facility] 1 (NORMAL) e.u./dl (missing) CREATININE,URINE 2024-05-29 02:20 [facility] 110.2 mg/dl As of August 2022 testing method has changed, this may include reference ranges. TOTAL PROTEIN,URINE TIMED 2024-05-29 02:20 [facility] 17 mg/dl As of August 2022 testing method has changed, this may include reference ranges. PH,URINE 2024-05-29 02:20 [facility] 6.0 ph (missing) CLARITY,URINE 2024-05-29 02:20 [facility] CLEAR (missing) (missing) SQUAMOUS EPITHELIAL CELL,UR 2024-05-29 02:20 [facility] FEW [place] (missing) (missing) LEUKOCYTE ESTERASE, URINE 2024-05-29 02:20 [facility] NEGATIVE (missing) (missing) NITRITE,URINE 2024-05-29 02:20 [facility] NEGATIVE (missing) (missing) OCCULT BLOOD,URINE 2024-05-29 02:20 [facility] NEGATIVE (missing) (missing) BILIRUBIN,URINE 2024-05-29 02:20 [facility] NEGATIVE (missing) Bilirubin can be influenced by color interference. Please correlate positive results with clinical presentation GLUCOSE, URINE (UA) 2024-05-29 02:20 [facility] NEGATIVE mg/dl (missing) PROTEIN,URINE 2024-05-29 02:20 [facility] NEGATIVE mg/dl (missing) UR CULTURE IF IND 2024-05-29 02:20 [facility] NOT INDICATED (missing) (missing) BACTERIA,URINE 2024-05-29 02:20 [email or web address] Rare /hpf (missing) COLOR,URINE 2024-05-29 02:20 [facility] YELLOW (missing) URINE CLEAN CATCH Result panel 2 NUCLEATED RED BLOOD CELLS AUTO 2024-05-29 02:29 [facility] 0.0 /100wbc (missing) BASOPHILS # (AUTO) 2024-05-29 02:29 [facility] 0.0 10 3/ul (missing) NRBC ABSOLUTE COUNT (AUTO) 2024-05-29 02:29 [facility] 0.00 x10 3/ul (missing) EOSINOPHILS # (AUTO) 2024-05-29 02:29 [facility] 0.1 10 3/ul (missing) BILIRUBIN,TOTAL 2024-05-29 02:29 [facility] 0.4 mg /dl As of August 2022 testing method has changed, this may include reference ranges. CREATININE 2024-05-29 02: [facility] 0.5 mg/dl As of August 2022 testing method has changed, this may include reference ranges. MONOCYTES # (AUTO) 2024-05-29 02:29 [facility] 0.8 10 3/ul (missing) ALBUMIN/GLOBULIN RATIO 2024-05-29 02:29 [facility] 1.1 (missing) (missing) LYMPHOCYTES # (AUTO) 2024-05-29 02:29 [facility] 1.8 10 3/ul (missing) AST ASPARTATE AMINOTRANSFERASE 2024-05-29 02: [facility] 10 iu/l As of August 2022 testing method has changed, this may include reference ranges. ANION GAP 2024-05-29 02:29 [facility] 10.0 (missing ) (missing) CHLORIDE 2024-05-29 02:29 [facility] 105 mmol/l As of August 2022 testing method has changed, this may include reference ranges. HGB - HEMOGLOBIN 2024-05-29 02:29 [facility] 11.7 g /dl (missing) WHITE BLOOD COUNT 2024-05-29 02: [facility] 12.5 x10 3/ul (missing) RED CELL DISTRIBUTION WIDTH 2024-05-29 02: [facility] 12.8 % (missing) GLUCOSE 2024-05-29 02: [facility] 126 mg/dl As of August 2022 testing method has changed, this may include reference ranges. SODIUM 2024-05-29 02:29 [facility] 137 mmol/l As of August 2022 testing method has changed, this may include reference ranges. GFR - MDRD 2024-05-29 02:29 [facility] 140 (in g) Social History date description facility
[2024-05-29] MEDS: HYDROmorphone 2 MG/ML VIAL IVP PRN (11:19)
[2024-05-29] MEDS: PRENATAL VITAMIN TABLET PO SCH (11:30)
[2024-05-29] MEDS: CITRIC ACID/SODIUM CITRATE 15 ML UDC PO SCH (11:30)
[2024-05-29] MEDS: KETOROLAC 30 MG/ML VIAL IVP ONE (11:35)
[2024-05-29] MEDS: cefTRIAXone 2 GM in SODIUM CHLORIDE 0.9% MINIBAG 100 ML IV SCH (11:36)
[2024-05-29] MEDS: metroNIDAZOLE 500 MG/100 ML 500 MG/100 ML BAG IV ONE (12:30)
[2024-05-29] MEDS: NIFEdipine ER 30 MG TABLET PO SCH (14:03)
[2024-05-29] MEDS: FAMOTIDINE 20 MG/2 ML VIAL IVP SCH (14:03)
[2024-05-29] MEDS: ASPIRIN EC 81 MG TABLET PO SCH (14:03)
[2024-05-29] MEDS: SUCRALFATE 1 GM/10 ML UDC PO SCH (14:22)
[2024-05-29] MEDS: LACTATED RINGERS 1,000 ML IV SCH (15:00)
--- NOTE | 2024-05-29 17:40 | HISTORY & PHYSICAL EXAMINATION ---
Admit History Visit Reason Visit Reason: Other (RUQ pain, acute cholecystitis) : 2 Parity: 0 : 1 Care: positive [facility] Complications This : positive Chronic HTN and Other (hyperemesis, bmi 40, chronic GERD. ) Smoking Status: Never smoker Mother's Labs Mother's Blood Type: positive B Mother's RH: positive Positive Rubella Status: positive Immune Other Maternal History Other Maternal History: Patient presents to ER early this am with severe abdominal pain in RUQ. has not moved. Always there. not better wtih BM or Vomiting episode. has not eaten. baby moving. does not feel like contractions. US consistent with acute cholecystitis. Seen by general surgery who recommends surgery to remove gall bladder in the next day or so. also recommends Ceftriaxone and Flagyl which have been started. has had one dose of toradol 30 mg iv, but really what controls her pain is 2 mg dilaudid iv. otherwise she is rithing on and off and miserable Expected Delivery Route/Plan Anticipate Specific Issues/Plans LMP: 11/21/2023 STERLING by LMP: 08/27/2024 U/S: on 01/31/2024 @ 10.2wks c/w LMP dating (STERLING by U/S 08/26/2024) Final STERLING: 08/27/2024 Allergies: NKDA RX: PNV, Aspirin, Reglan Surgeries: Lasik, cosmetic, left knee FM HX: alcohol abuse: mother, father Pre- weight: 283 BMI: 42.0 Blood type: B+ Antibody screen: Negative CBC: PLT 318 HCT 41.3 HGB 13.3 Rubella: Immune VZV: Immune HBsAg: Negative HepC NR RPR/AB-EIA: NR HIV: NR Flu: received this season COVID: x3 PAP: 2021 WNL, HPV neg. No Hx abnormal GC/CT: 01/31/2024 neg HSV: denies in self and partner Genetic Testing: [facility] NIPT- Negative, male FAS: 05/01/2024 Placenta: posterior but inferior edge can not be clearly seen to absolutely r/o previa, cleared at a 26 wk f/u scan Cord: 3 vc THERESE: 19.2 EFW: 37%ile some views of face not well seen. 26 weeks scan with short nasal bone. 50gm GCT: ordered OB Visit Log Initial Weight: 283 lb Date EGA Weight BP Fundal ht Pres HR Movement CTX Edema Cerv Dil Cerv Eff % Sta 01/10/24 7w 1d 283 lb(+0 oz) 158/90 170 01/31/24 10w 1d 277 lb(-6 lb) 132/92 160 03/16/24 16w 4d 272 lb(-11 lb) 130/88 138 absent absen t absent 05/01/24 23w 1d 276 lb(-7 lb) 122/78 130 absent absen t absent Notes Visit Date: 05/01/24 Last Updated by: Emma Rosas CNM, ARNP Leah presents today with her Martell for routine OB visit. Denies vaginal bleeding, leakage of fluid or contractions. She reports +FM. Heartburn: -Has been struggling consistently with heartburn and acid reflux which consistently induces vomiting. -Reviewed relief measures and discussed appropriate step-limon approach to management in . -Pt has bicitra Rx for PRN use. Migraines: -Tylenol 1000mg q 8hrs is not working well for her. -Reports the headaches are not daily and she does not feel like she always needs to take medication but when they develop into a migraine she feels horrible and the Tylenol does not touch them. -Admits they may be associated with mild dehydration as she has been intermittently feeling dehydrated secondary to nausea and vomiting. -Reviewed management options and pt desires initiation of nifedipine. Reviewed once daily dosing for prevention. FAS previously ordered and is scheduled to be completed tonight - will notify pt of results once received. 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 Next visit will be group care. Reviewed warning s/sx and when to present. She denies further questions or concerns at this time. Visit Date: 03/16/24 Last Updated by: Emma A Alison, CNM, HEAD KNITTING MACHINE FIXER Cheryl presents today with her Martell for routine OB visit. She denies vaginal bleeding, leakage of fluid or cramping. She has not yet started to feel movement. Working travel nursing job in [place] and is not having a good time. 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 She is taking care of demise patients and she was not supposed to be working nights. 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 Nausea with occasional vomiting: -overall feels that this is improving -Taking Reglan PRN Constipation -No longer taking Zofran so she states the constipation has slightly improved. Does not tolerate Mirilax -Reviewed and encouraged alternative stool softeners to avoid constipation and discussed risk of hemorrhoids -Discussed increased fluid intake and dietary additions to improve constipation. Travel precautions: -Flying to [facility] mid-April -Travel precautions reviewed and permission to fly letter provided. -Recommended wearing compression stocking throughout the flight Blood pressure -Pt had elevated blood pressure at her first visit -Blood pressure has since been borderline. 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 She states she has never had a systolic value above 139 or a diastolic value above 88. -Continues to take LDASA once daily Vertigo -Recommended direct care provider -Encouraged PO benadryl q hs -Encouraged increased fluid intake -Reviewed movement maneuvers to improve and resources provided ANAYA/migraines -Reviewed relief measures and medications safe in . -Reglan Rx previously provided and encouraged continuation -Encouraged increased fluid intake HPI Current : Vital Signs Temperature 36.9 C 05/29/24 14:00 Pulse Rate 87 05/29/24 14:00 Respiratory Rate 18 05/29/24 14:00 Blood Pressure 124/76 05/29/24 14:00 O2 Saturation 98 05/29/24 14:00 Non stress test not done as only 27 weeks but baby FHT normal. no contractions on monitor Meds/Allgy Home Medications Ambulatory Orders Medication Instructions Recorded Confirmed aspirin 81 mg tablet,delayed 81 mg PO QDAY 03/16/24 05/29/24 release (Adult Aspirin Regimen) omeprazole 20 mg capsule,delayed 20 mg PO QDAY #90 caps 04/24/24 05/29/24 release sucralfate 1 gram tablet (Carafate) 1 g PO BID #90 tabs 04/24/24 05/29/24 nifedipine 30 mg tablet,extended 30 mg PO QDAY #90 tabs 05/01/24 05/29/24 release 24 hr (Procardia XL) Allergies Allergies Allergy/AdvReac Type Severity Reaction Status Date / Time No Known Drug Allergies Allergy Verified 05/29/24 03:57 PFSH Active Problems All Active Problems 27 weeks gestation of (Acute) PTSD (post-traumatic stress disorder) (Acute) Anxiety (Acute) Chronic GERD (Acute) Migraine (Acute) Hyperemesis affecting , antepartum (Acute) Obesity, Class III, BMI 40-49.9 (morbid obesity) (Acute) Acute cholecystitis (Acute) Intractable abdominal pain (Acute) Right upper quadrant abdominal pain (Acute) Supervision of other high risk pregnancies, second trimester (Acute) Advanced maternal age (AMA) in (Acute) Elevated blood pressure affecting in first trimester, antepartum (Acute) Surgical History Surgical History Hx of LASIK H/O eye surgery right H/O cosmetic surgery H/O left knee surgery ACL repair Family History Family History Father Alcohol abuse Mother Alcohol abuse Social History Social History (Updated 05/29/24 @ 18:02 by Svetlana Ellington MD) Smoking Status: Never smoker Do you dip or chew tobacco?: No Do you vape?: No Living arrangement: At home Marital Status: Support Person: Yes Relationship: Spouse Living Situation Details: [place] Do you feel safe in your home environment?: Yes Suffered physical, verbal, emotional, or financial abuse?: No ETOH Use: None Are you sexually active?: Yes 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 baby moving. no appetite. has not eaten all day. vomited once this am. had a normal bm last night. no dysuria. no hematuria. Physical Abdominal Exam Vital Signs: Temp Pulse Resp BP Pulse Ox 36.9 C 87 18 124/76 98 05/29/24 14:00 05/29/24 14:00 05/29/24 14:00 05/29/24 14:00 05/29/24 14:00 After dilaudid she is able to rest but she is otherwise uncomfortable with episodic severe pain, especially when she is hearing something about her situation that increases her anxiety. Her breathing is normal, not labored. Heart RRR abdomen is soft, fundus not tender. RUQ is not tender to touch, just hurts her inside. no rebound or garding. extremities well perfused, small edeam. Contraction Frequency (min/apart): none Presentation Presentation: positive Breech (by US today) Vaginal Exam Dilation (in cm): deferred, no indication Speculum Exam Speculum Exam Performed: positive No Plan for Labor Plan For Labor I expect patient to be DC'd or transferred within 96 hours.: Yes Conclusion/Plan Problem List (1) Acute cholecystitis: Plan: flagyl and ceftrixone per gen surg. transfer to higher level of NICU care for surgery as baby would not do well if delivered here at this time. Transfer accepted by Dr. Uribe, MFM fellow at . patient has not eaten all day. (2) 27 weeks gestation of : Plan: betamethasone given per Dr. Uribe's request. Lab Results Lab results reviewed: Yes 05/29/24 05:07 05/29/24 05:07 Diagnostic Imaging Results Diagnostic Imaging Results: positive Final report reviewed
[2024-05-29] MEDS: SODIUM CHLORIDE FLUSH 0.9% 10 ML SYRINGE IVP SCH (17:51)
[2024-05-29] MEDS: BETAMETHASONE 30 MG/5 ML VIAL IM ONE (17:55)
[2024-05-29 18:07] VITALS: BP 110/60; TEMP 98.6; O2SAT 99
[2024-05-29] MEDS ORDERED: ACETAMINOPHEN 1,000 MG/100 ML 1,000 MG/100 ML BAG IV ONE (18:16)
[2024-05-29] MEDS: ACETAMINOPHEN 500 MG TABLET PO PRN (18:32)
[2024-05-29] MEDS: METOCLOPRAMIDE 10 MG TABLET PO PRN (19:36)
--- NOTE | 2024-05-29 20:00 | Discharge Summary ---
"Discharge Summary Admit Date: 05/29/24 Discharge Date: 05/29/24 Discharging Provider: Svetlana Ellington MD Code Status: Attempt Resuscitation Discharge Facility Name: [facility] DIAGNOSES Admission Diagnoses: RUQ pain, 27 weeks. Discharge Diagnoses with Status of Each Condition: acute cholecystitis HPI History of Present Illness: 38 yo with at 27 weeks presents to ER with severe RUQ pain. has been complicated by hyperemesis, GERD, migraines, anxiety, hypertension, bmi 42. Also she had infertility and really struggled to conceive. In ER she had US that was consistent with acute cholecystiitis. CONSULTS | PROCEDURES Consultations: Dr. Phillips from general surgery HOSPITAL COURSE Hospital Course: She was admitted to [facility] and given pain medication. Once abdominal US was reviewed by Dr. Phillips and he felt surgery was indicated, transfer was arranged to for NICU availability in case of any needs associated with surgery. Cheryl's pain was managed with 2 mg dilaudid every few hours. She also received one dose of 30 mg toradol and then 1000 mg po tylenol. 12 mg betamethasone was given to enhance lung maturity in case of delivery. Dr. Phillips recommended Ceftriaxone and metronidazole for her cholecystiitis and this was begun. ALLERGIES Allergies Allergy/AdvReac Type Severity Reaction Status Date / Time No Known Drug Allergies Allergy Verified 05/29/24 03:57 MEDICATIONS Ambulatory Orders Medication Instructions Recorded Confirmed aspirin 81 mg tablet,delayed 81 mg PO QDAY 03/16/24 05/29/24 release (Adult Aspirin Regimen) omeprazole 20 mg capsule,delayed 20 mg PO QDAY #90 caps 04/24/24 05/29/24 release sucralfate 1 gram tablet (Carafate) 1 g PO BID #90 tabs 04/24/24 05/29/24 nifedipine 30 mg tablet,extended 30 mg PO QDAY #90 tabs 05/01/24 05/29/24 release 24 hr (Procardia XL) PHYSICAL EXAM AT DISCHARGE Vital Signs: Vital Signs x48h Temp Pulse Resp BP Pulse Ox 05/29/24 17:00 37 C 81 16 110/60 99 05/29/24 14:00 36.9 C 87 18 124/76 98 General Appearance: positive Moderate distress Respiratory: positive No respiratory distress Cardiovascular: positive Regular rate & rhythm Abdomen: positive Non-tender (to palpation in RUQ. ) and Other (Uterus 27 week size. not tender.); negative No distention, Guarding or Rebound LABS 05/29/24 05:07 05/29/24 05:07 DIAGNOSTIC IMAGING Diagnostic Imaging Results: Final report reviewed FOLLOW UP Follow Up: transfer to for probable gall bladder surgery. F/U for further care after discharge. TIME SPENT Time Spent in Discharge (Minutes): 60 Discharge Plan Discharge Patient Disposition: 02 Transfer Acute Care Hosp Condition: Stable Prescriptions: No Action sucralfate [Carafate] 1 gram tablet 1 g PO BID Qty: 90 4RF omeprazole 20 mg capsule,delayed release(DR/EC) 20 mg PO QDAY Qty: 90 4RF aspirin [Adult Aspirin Regimen] 81 mg tablet,delayed release (DR/EC) 81 mg PO QDAY nifedipine [Procardia XL] 30 mg tablet extended release 24hr 30 mg PO QDAY Qty: 90 4RF Assessment: acute cholecystitis Print Language: Belgian Stand Alone Forms: PCP List Follow-up Care: Emma Rosas CNM, [facility] [Primary Care Provider] -"
== END 2024-05-29 20:01 | disposition short-term general hospital (02) | DRG 832 ==
LOC: ED 03:46 → FBP 11:03
PROVIDERS: ADMIT Obstetrics & Gynecology; ATTEND Obstetrics & Gynecology
DX: Z3A.27 27 weeks gestation of pregnancy; K21.9 Gastro-esophageal reflux disease without esophagitis; F41.9 Anxiety disorder, unspecified; O99.342 Other mental disorders complicating pregnancy, second trimester; Z79.82 Long term (current) use of aspirin; O99.612 Diseases of the digestive system complicating pregnancy, second trimester; O10.912 Unspecified pre-existing hypertension complicating pregnancy, second trimester; O99.212 Obesity complicating pregnancy, second trimester; Z79.899 Other long term (current) drug therapy; K81.0 Acute cholecystitis; E66.813 Obesity, class 3